=== PATIENT | male | born 1960 | race Caucasian/White ===

== ENCOUNTER → 2022-08-29 20:30 | Outpatient (REF) | payer OTHER, SELFPAY | LOC: HO.SL 20:30 | PROVIDERS: Visit Provider Internal Medicine | DX: Z13.89 Encounter for screening for other disorder (principal) ==

== ENCOUNTER 2022-11-04 10:31 | Outpatient (AMB) | payer OTHER, SELFPAY ==
--- NOTE | 2022-11-04 10:42 | A.OFFVIS_ITS ---
Intake Vital Signs 11/04/22 10:49 Height 5 ft 8 in Weight 270 lb BMI 41.0 BP 126/66 Blood Pressure Location Lt brachial Position Sitting Respiration 16 Pulse 102 H Pulse Source Pulse Oximeter Pulse Oximetry (%) 94 Oxygen Delivery Method Nasal Cannula Oxygen Flow Rate 3 Intake Visit Reasons: back pain Intake Note: patient comes in for initial visit was referred by PCP. Allergies iodine Allergy (Mild, Verified 11/04/22 10:43) Rash HPI back pain HPI Details Leo is very unfortunate 62 years old gentleman who presents in my office on referral of primary care physician he reports pain in lower back with radiation into bilateral lower extremities. The radiation goes all the way down to the feet and into the bilateral toes. He reports his pain today a out of 10 to 9/10. He cannot sleep normally because of his pain cannot do activities of daily living he can take care of himself but he cannot function normally. He is currently retired individual. Weather changes in movements aggravates his pain and oral medications alleviate his pain little bit he is wheelchair bound. His most severe pain is after 22:00. The less severe pain is in a.m.. He is wearing a special bracelet on his left lower extremity, most likely he is under some sort of a court order which limits his transportation. He was previously in residential. In terms of tissue damage he reports his pain is pulsing, throbbing, pounding, stabbing, tingling, headache, punishing, killing. He had multiple studies done on his lumbar spine the last MRI was done in [facility] last year. He was under care of physical therapy and occupational therapy where he was tried to be mobilized and improve his walking. Nevertheless he is in wheelchair. In the past he had multiple injections performed in the back before his surgery. He had several surgeries on his lower back including L3-L4 and L4- 5 possible fusions. He states that he was called that he needs yet another L5- S1 fusion. He denies smoking cigarettes denies drinking alcohol he drinks coffee but denies recreational drugs. He is currently taking methadone 60 mg 3 times a day and oxycodone 10 mg 3 times a day. His past medical history significant for morbid obesity headaches and hypertension, history of congestive heart failure, he is suffering from atrial fibrillation. He is on blood thinners. He has hypothyroidism and also severe COPD, he has obstructive sleep apnea.. Surgical history includes several spinal surgeries. He is suffering from COPD in he is wearing nasal cannula with oxygen. He denies smoking cigarettes denies drinking alcohol he drinks coffee but denies recreational drugs. Review of Systems Const All systems reviewed & are unremarkable except as noted in HPI and below Reports weight gain ENT Reports Normal hearing present Card Reports no additional complaints Resp Reports as per HPI GI Reports no additional complaints Reports no additional complaints Musc Reports as per HPI Neuro Reports as per HPI, Reports Normal hearing present, Denies Abnormal speech present, Denies confusion and Denies Sensory deficit (Neuro) Psych Reports no additional complaints and Denies confusion Physical Exam Vital Signs: Last Vital Signs Pulse 102 H 11/04/22 10:49 Resp 16 11/04/22 10:49 BP 126/66 11/04/22 10:49 Pulse Ox 94 11/04/22 10:49 Oxygen Delivery Method Nasal Cannula 11/04/22 10:49 Oxygen Flow Rate 3 11/04/22 10:49 BMI result Body Mass Index 41.0 Const General: no acute distress; No confusion Nutritional Appearance: obese morbidly obese Orientation/consciousness: patient oriented x3 and No confusion Limitations: physical limitations and wheelchair Eyes General: appearance normal, both eyes and all related structures Pupils: Equal, round and reactive pupils present EOM: EOMs intact bilaterally Neck Neck: Yes full ROM Chest Chest palpation & inspection: normal inspection of the chest Resp Effort & Inspection: normal respiratory effort, able to speak in complete sentences, normal respiratory pattern, audible wheezes, no cough, decreased respiratory effort, nasal flaring and other (On oxygen with nasal cannula) Cardio Jugular venous distension: no JVD GI Inspection: Yes normal to inspection Back/Spine/Pelvis Other: Reports tenderness on palpation in paraspinal spinal regions lumbar spine. Neuro General: patient oriented x3, gait normal and No confusion Cranial nerves: Yes CN's II-XII intact bilaterally, Yes Equal, round and reactive pupils present, Yes Normal hearing present and Yes Ability to bilaterally elevate shoulders present Speech: No Abnormal speech present Gait exam (Neuro): Normal gait present Motor exam (neuro): 5/5 motor strength present throughout Sensory Exam: No Sensory deficit (Neuro) Extrem General: No pedal edema Psych Speech and movement: Normal speech and movement present Affect: normal affect Attitude: cooperative Thought process: Normal thought process present Thought content: Normal thought content present Insight: Good insight present (Psych) Judgement: Good judgement present (Psych) Assessment & Plan Assessment & Plan (1) Postlaminectomy syndrome: Code(s): M96.1 - Postlaminectomy syndrome, not elsewhere classified (2) Chronic pain syndrome: Code(s): G89.4 - Chronic pain syndrome (3) Low back pain: Code(s): M54.50 - Low back pain, unspecified (4) Spinal stenosis of lumbar region: Code(s): M48.061 - Spinal stenosis, lumbar region without neurogenic claudication Plan According to the patient he was offered yet another L5-S1 surgery however he did not proceed for the surgery because of the inability of the anesthesiologist to provide safe anesthesia for this patient. He is suffering from atrial fibrillation and he is on blood thinners. It remains to be seen whether not this blood thinners can be stopped. But if it could continue spinal anesthesia could be used for L5-S1 fusion provided its posterior fusion. He is on exuberant doses of opioid medications according to the patient he is on 60 mg of methadone 3 times a day. He also takes oxycodone 10 mg 3 times a day. I pointed out to the patient that possibility exists that it is possible that opioid induced hyperalgesia which causes actually his pain. However tapering down this patient with self-reported dosages of the opioid medications would take about 3-4 years to bring it to the appropriate doses of the opioid medications and possibly wean it off. I also cannot make a decision whether not this patient would be a good candidate for the neuro surgery I do not have any images. Patient told me that to reschedule his appointment in 1 month and he will provide to us the MRI he had 1 year ago and all the surgeries he received in the past. I mentioned to him that possibility exist to perform the surgery under spinal anesthesia however I retract this opinion because patient did not mention that he has significant congestive heart failure which could be contraindication for continuous spinal anesthesia. I will schedule his appointment with me in 1 month. Coding Level of Care Code New Pt Level 4 (99174) Diagnoses Postlaminectomy syndrome M96.1 Chronic pain syndrome G89.4 Low back pain M54.50 Spinal stenosis of lumbar region M48.061
[2022-11-04 10:49] VITALS: BP 126/66; PULSE 102; RESP 16; O2SAT 94; BMI 41.0
== END 2022-11-04 11:07 | disposition home or self-care (01) ==
PROVIDERS: PCP Emergency Medicine; Visit Provider Anesthesiology
DX: M96.1 Postlaminectomy syndrome, not elsewhere classified (principal); G89.4 Chronic pain syndrome; M54.50 Low back pain, unspecified; M48.061 Spinal stenosis, lumbar region without neurogenic claudication
CPT/HCPCS: 99204

== ENCOUNTER → 2022-11-04 10:31 | Outpatient (BNVA) | payer OTHER, SELFPAY | PROVIDERS: Visit Provider Anesthesiology | DX: G89.4 Chronic pain syndrome (principal); M96.1 Postlaminectomy syndrome, not elsewhere classified; M48.061 Spinal stenosis, lumbar region without neurogenic claudication; M54.50 Low back pain, unspecified; Z79.891 Long term (current) use of opiate analgesic | CPT/HCPCS: 99202 ==

== ENCOUNTER → 2022-11-07 14:09 | Outpatient (REF) | payer OTHER, SELFPAY | LOC: HO.SL 14:09 | PROVIDERS: Visit Provider Nurse Practitioner Gerontology | DX: G47.33 Obstructive sleep apnea (adult) (pediatric) (principal) | CPT/HCPCS: 95806 ==

== ENCOUNTER → 2022-11-07 19:00 | Outpatient (BNV) | payer OTHER, SELFPAY | PROVIDERS: Visit Provider Internal Medicine | DX: G47.33 Obstructive sleep apnea (adult) (pediatric) (principal) | CPT/HCPCS: 95806 ==